=== PATIENT | female | born 1955 | race Caucasian/White ===

== ENCOUNTER → 2021-05-01 | Outpatient (CLI) | payer MEDICARE ==
[~2021-05-01] MED LIST: ALDACTONE50 MG PO; BYSTOLIC2.5 MG PO; CALCIUM WITH D1 CTB PO; CEPHALEXIN500 M1 PO; IMITREX50 MG PO; LASIX 40MG TABL40 MG PO; LOPRESSOR 225 MG/TAB PO; MULTIPLE VITAMI1 CAP PO; PRINZIDE 12.5 M1 TAB PO; SYNTHROID0.05 MG/TA PO; TENORMIN 2525 MG/TAB PO; TIROSINT50 MC1 PO; TYLENOL 325MG325 MG PO; VESICARE 5MG5 MG PO; ZESTRIL 5MG5 MG PO
[2021-05-01 14:23] LABS: THYROID STIMULATING HORMONE 0.325 uIU/mL (0.350-4.940)
[2021-05-01 16:18] LABS: ANION GAP 8 mmol/L (7-16); BLOOD UREA NITROGEN 14 mg/dL (7-17); CALCIUM 9.6 mg/dL (8.4-10.2); CARBON DIOXIDE 22 mmol/L (22-30); CHLORIDE 109 mmol/L (98-107); CREATININE, serum 0.91 (0.52-1.25); GLUCOSE 102 mg/dL (74-106); POTASSIUM 4.5 mmol/L (3.4-5.0); SODIUM 140 mmol/L (137-145)
[2021-05-01 16:31] LABS: TROPONIN-I < 0.012 ng/mL (0.000-0.035)
== END ==
LOC: ZCOL.LAB 11:56
PROVIDERS: Nurse Practitioner
DX: R07.89 Other chest pain (principal)